=== PATIENT | male | born 1955 ===

== ENCOUNTER 2023-06-29 03:29 | Emergency (ER) | payer OTHER ==
[~2023-06-29] VITALS: Ht 175.3 cm; Wt 106.6 kg
[2023-06-29 03:56] LABS: BASOPHILS 0.7 % (0-2); EOSINOPHILS 2.2 % (0-6); HEMATOCRIT 47.9 % (35.0-50.0); HEMOGLOBIN 16.2 g/dL (12.0-18.0); LYMPHOCYTES 21.3 % (24-44); MCH 32.5 (27-36); MCHC 33.9 g/dl (30-36); NEUTROPHILS 69.8 % (39-80); PLATELET COUNT 309 K/uL (140-440); RBC 4.99 M/ul (4.3-5.7); RDW 13.4 (10.5-15.0)
[2023-06-29 04:18] LABS: ALBUMIN 4.1 g/dL (3.4-5.0); ANION GAP 17.3 (7-21); BILIRUBIN, TOTAL 0.3 ng/dL (0.2-1.0); BUN/CREATININE RATIO 13.14 (6.0-28.6); CALCIUM 9.6 mg/dL (8.5-10.1); CREATININE, SERUM 1.75 mg/dL (0.70-1.30); MAGNESIUM 2.3 mg/dL (1.8-2.4); POTASSIUM 4.3 mmol/L (3.5-5.1); PROTEIN, TOTAL 8.2 g/dL (6.4-8.2)
[2023-06-29 04:35] LABS: BILIRUBIN, URINE NEGATIVE (negative); BLOOD/HGB, URINE TRACE-I (Negative); KETONE, URINE SMALL (Negative); LEUK ESTERASE, URINE NEGATIVE (negative); NITRITE, URINE NEGATIVE (negative); PH, URINE 5.5 (5-7)
[2023-06-29 04:41] LABS: EPITHELIAL CELLS, URINE SQUAMOUS 1+ /lpf (0-1+); RED BLOOD CELLS, URINE 0-1 /hpf (0-5); REFLEX CULTURE, URINE No (No); WHITE BLOOD CELLS, URINE 0-1 /HPF (0-5)
[2023-06-29 05:08] VITALS: BP 143/89
--- OUTSIDE RECORDS SUMMARY | 2023-06-29 05:28 | XMS ---
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 E.Bertrand VISIT COUNT (12 MO.) 1 CARIN White TOTAL 1 NOTE: Visits indicate total known visits. ED/UCC VISIT TRACKING (12 MO.) 06/29/2023 03:30 [facility] TYPE: Emergency COMPLAINT: - CHEST PAIN, SOB INPATIENT VISIT TRACKING (12 MO.) No inpatient visits to display in this time frame [email or web address]
--- NOTE | 2023-07-01 05:51 | EKG ---
[facility] [address] [facility] [facility] [place], [place] [address] Signed Sinus tachycardia Otherwise normal ECG No previous ECGs available Confirmed by ANGELO HOFFMANN MD ([id number]) on 07/01/2023 5:50:48 AM Electronically Signed By: ANGELO HOFFMANN 07/01/23 0550 PATIENT NAME: RUDI RAMOS Electrocardiogram DATE OF : 59 PHYSICIAN: ANGELO HOFFMANN REPORT #: [id number] REPORT IS CONFIDENTIAL AND NOT TO BE RELEASED WITHOUT AUTHORIZATION
== END 2023-06-29 05:10 | disposition home or self-care (01) ==
LOC: ED 03:29
PROVIDERS: Internal Medicine
DX: E86.0 Dehydration (principal); R07.9 Chest pain, unspecified; C64.9 Malignant neoplasm of unspecified kidney, except renal pelvis; E11.9 Type 2 diabetes mellitus without complications; I10 Essential (primary) hypertension; Z90.5 Acquired absence of kidney
CPT/HCPCS: 36415; 71045; 80053; 81001; 83735; 83880; 84484; 85025; 85379; 93005; 93010; A9270; J7121